=== PATIENT | male | born 1985 | race Caucasian/White ===

== ENCOUNTER 2024-05-10 08:42 | Emergency (ER) | payer MEDICAID ==
[2024-05-10 08:51] VITALS: BP 148/96; O2SAT 100
--- NOTE | 2024-05-10 09:07 | ED Physician Documentation ---
PD HPI LOWER EXT INJURY - Stated complaint Stated Complaint: LT FOOT BIG TOE PX - Chief complaint Chief Complaint: Ext Problem - History obtained from History obtained from: Patient - History of Present Illness PD HPI LOW EXT INJURY LOCATION: Left, Toe Type of injury: No: Fall, Twist Timing - onset: How many days ago (2) Timing - duration: Days (2) Timing - details: Gradual onset, Still present (gradual onset but has gotten extremely painful to touch, bend, walk today.) Worsened by: Moving, Palpating Associated symptoms: Swelling (mild). No: Weakness, Numbness, Discolored Similar symptoms before: Has not had sx before Review of Systems Constitutional: denies: Fever, Chills Skin: denies: Rash, Lesions Neurologic: denies: Focal weakness, Numbness PD PAST MEDICAL HISTORY - Past Medical History Past Medical History: Yes Musculoskeletal: Chronic back pain - Past Surgical History Past Surgical History: Yes Ortho: Other - Present Medications Home Medications: Ambulatory Orders Medication Instructions Recorded Confirmed HYDROcod/ACETAM 5/325 [Clarence 5/325] 1 ea PO Q6H PRN #18 tablet 05/10/24 dexAMETHasone [Decadron] 4 mg PO DAILY #5 tablet 05/10/24 - Allergies Allergies/Adverse Reactions: Allergies Allergy/AdvReac Type Severity Reaction Status Date / Time No Known Drug Allergies Allergy Verified 05/10/24 08:50 - Social History Does the pt smoke?: Yes Smoking Status: Current every day smoker Does the pt drink ETOH?: No Does the pt have substance abuse?: No Substance Use and Type: Marijuana - Immunizations Immunizations are current?: Yes - POLST Patient has POLST: No PD ED PE NORMAL - Vitals Vital signs reviewed: Yes - General General: Alert and oriented X 3, Well developed/nourished, Other (appears in pain due to great toe. ) - Extremities Extremities: Other (left great toe with marked tenderness at dorsal and medial MT head. No skin sores. Some redness minimal. Some mild skin breakdown between toes but no signs of infection. Ankle not tender. ) - Neuro Neuro: No motor deficit, No sensory deficit Results - Vitals Vitals: Oxygen O2 Source Room air - Rads (name of study) toe xray Relevant Findings:: Prelim report reviewed, EMP independent interpretation of test (no bony lesions) PD Medical Decision Making - ED course Complexity details: reviewed results, considered differential (the degree of pain to touch and movement would be consistent with gout. No effusion to be able to tap for disagnostic. Does not appear infected. No bony lesions. Okay to treat as inflammatory: tendonitis or gout. ), d/w patient Departure - Departure Disposition: 01 Home, Self Care Clinical Impression: Pain of left great toe Condition: Stable Record reviewed to determine appropriate education?: Yes Instructions: ED Arthritis Gout Prescriptions: dexAMETHasone [Decadron] 4 mg PO DAILY #5 tablet HYDROcod/ACETAM 5/325 [Clarence 5/325] 1 ea PO Q6H PRN #18 tablet PRN Reason: Pain Comments: Your your x-ray is normal. No signs of bony abnormality. Clinically this sounds most likely gout given the intensity of the pain and tenderness. It could be just tendinitis or some inflammation of the joint space. Common treatment for both would be anti-inflammatories and pain medicine with less activity until improved. The gout would actually be more likely to get better sooner but both of them would be several days to week perhaps. Continue with some ibuprofen 600 to 800 mg 3 times daily with food. Add Tylenol every 4-6 hours if needed for pain. I would also add in dexamethasone steroid anti-inflammatory which would be helpful for both. Also hydrocodone/acetaminophen for pain medicine if needed for worse pain such as you are having. Firm soled shoe and activity as tolerated. I would anticipate improvement over the next few days and resolved by 3 to 5 days most likely. Follow-up if not improving significantly in that timeframe. I sent a prescription to [facility] pharmacy. If this is a "worn off" episode of gout related to some irritation or minor injury then it would likely be infrequent or may not happen again. If he were to develop a pattern of episodes frequently meaning every few weeks or months then there is preventive medicine that can be used to help with gout. Otherwise just see if you get any further episodes down the line. I am prescribing a short course of narcotic pain medication for you. These are potentially dangerous and addictive medications that should be used carefully. These medications may constipate you. Take an [id number] stool softener such as docusate twice daily with plenty of water while taking these medications. If you go 24 hours without a bowel movement, take cuqi-ixd-[id number] MiraLAX, per package instructions. Do not drink or drive while taking these medications. If you received narcotic or sedating medications while in the emergency department do not drive for 24 hours. Store this medication in a safe, secure place and out of reach of children. It is a violation of federal law to give or sell this medication to another person or to use in a manner other than prescribed. The ED will not refill narcotic prescriptions, including prescriptions lost or stolen. You can dispose of unwanted medications at the [facility]'s office or at several pharmacies such as [facility]. Forms: PCP List Discharge Date/Time: 05/10/24 10:08
[2024-05-10] MEDS: dexAMETHasone 4 MG TABLET PO STA (09:34)
[2024-05-10] MEDS: COLCHICINE 0.6 MG TABLET PO STA (09:34)
[2024-05-10] MEDS: ACETAMINOPHEN 500 MG TABLET PO STA (09:34)
--- NOTE | 2024-05-10 10:03 | XRAY Report ---
PROCEDURE: Toe(s) 2+V LT INDICATIONS: great toe pain TECHNIQUE: 3 views of the left first toe(s) acquired. COMPARISON: None. FINDINGS: Bones: No acute fractures or dislocations. Accessory ossicle versus chronic fifth metatarsal base fr acture. No suspicious bony lesions. Soft tissues: No suspicious soft tissue densities. IMPRESSION: No acute bony abnormality. Reviewed by: Luz Maria Skinner MD, PhD on 05/10/2024 10:02 AM PDT Approved by: Luz Maria Skinner MD, PhD on 05/10/2024 10:02 AM PDT Station ID: [id number]
== END 2024-05-10 10:08 | disposition home or self-care (01) ==
LOC: ED 08:42
DX: M79.675 Pain in left toe(s) (principal); M79.89 Other specified soft tissue disorders; F17.200 Nicotine dependence, unspecified, uncomplicated
CPT/HCPCS: 73660; 99283; 99284; A9270; J8540

== ENCOUNTER 2024-07-18 17:38 | Emergency (ER) | payer MEDICAID ==
[2024-07-18 18:00] VITALS: BP 133/84; O2SAT 99
[2024-07-18] MEDS: PROPARACAINE 0.5% OPHTH DROPS 15 ML EACHEYE STA (18:06)
--- NOTE | 2024-07-18 18:21 | ED Physician Documentation ---
History of Present Illness - Stated complaint Stated Complaint: SOMETHING IN R EYE - Chief complaint Chief Complaint: Heent - History obtained from History obtained from: Patient - History of Present Illness Timing: Prior to arrival - Additonal information Additional information: Patient is a 38-year-old male presenting to the emergency department with right eye pain after he was seen in his car and brushed his hair off and accidentally felt some wood debris that he was cutting earlier today falling to his right eye. He notes he washed it multiple times but feels there is still something in his right eye. He notes he does not wear glasses or contacts at baseline. Unsure of his last tetanus shot. He denies any worsening vision changes but notes severe pain with looking at lights or trying to open his eye. He notes mild lacrimation to his right eye. PD PAST MEDICAL HISTORY - Past Medical History Past Medical History: Yes Cardiovascular: None Respiratory: None Neuro: None Endocrine/Autoimmune: None GI: None : None HEENT: None Psych: None Musculoskeletal: Chronic back pain Derm: None - Past Surgical History Past Surgical History: Yes Ortho: Other - Present Medications Home Medications: Ambulatory Orders Medication Instructions Recorded Confirmed Erythromycin Base [Erythromycin 1 appful OP 5XD 7 Days #1 gm 07/18/24 Ophthalmic Ointment] - Allergies Allergies/Adverse Reactions: Allergies Allergy/AdvReac Type Severity Reaction Status Date / Time No Known Drug Allergies Allergy Verified 07/18/24 17:43 - Social History Does the pt smoke?: Yes Smoking Status: Current every day smoker Does the pt drink ETOH?: Yes Does the pt have substance abuse?: Yes Substance Use and Type: Marijuana - Immunizations Immunizations are current?: Yes - POLST Patient has POLST: No PD ED PE NORMAL - Vitals Vital signs reviewed: Yes - General General: Alert and oriented X 3 - HEENT HEENT: Atraumatic, PERRL, EOMI, Other (Periorbital swelling lacrimation noted on examination. Fluorescein stain here in emergency department shows no foreign bodies there is a corneal abrasion appreciated at 12 o'clock position. Eversion of upper and lower eyelid shows no signs of foreign bodies. ) - Neck Neck: Supple, no meningeal sign - Cardiac Cardiac: RRR, No murmur, No gallop, No rub - Respiratory Respiratory: No respiratory distress, Clear bilaterally - Neuro Neuro: Alert and oriented X 3 Results - Vitals Vitals: Vital Signs - 24 hr 07/18/24 17:43 Temperature 36.7 C Heart Rate 98 Respiratory 16 Rate Blood Pressure 133/84 H O2 Saturation 99 Oxygen O2 Source Room air PD Medical Decision Making - ED course Complexity details: re-evaluated patient ED course: Patient is a 38-year-old male presenting to the emergency department with right eye pain after accidentally brushing woodchips into his eye from running his hands through his hair and after he was cutting wood earlier today. He notes he took his safety goggles off shortly prior to this and since then continues to have right eye pain. He feels as though something is in his right eye. He notes lacrimation difficulty looking at light since injury. He denies any vision changes does not wear glasses or contacts. Vital stable on arrival. Physical exam shows pupils equal round reactive to light. Mild conjunctival erythema to right eye. With mild lacrimation.. Periorbital swelling lacrimation noted on examination. Fluorescein stain here in emergency department shows no foreign bodies there is a corneal abrasion appreciated at 12 o'clock position. Eversion of upper and lower eyelid shows no signs of foreign bodies. Patient feels significantly better after proparacaine. Visual acuity in triage shows no acute findings. Patient updated on tetanus here in emergency department. Will discharge patient with erythromycin ointment for right-sided corneal abrasion. Instructed patient to follow-up with his PCP in outpatient setting. 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 He was instructed to return with any vision changes worsening eye pain persistent feelings of foreign bodies swelling around his eye vision changes or any other new or worsening symptoms. Departure - Departure Disposition: 01 Home, Self Care Clinical Impression: Injury of conjunctiva and corneal abrasion of right eye w/o FB Condition: Good Comments: You were seen here in the emergency department for your right eye pain. Your workup here shows a corneal abrasion to your right eye in the 12 o'clock position. I did not see any foreign bodies. Your tetanus shot was updated here in the emergency department. You should apply erythromycin ointment 4 times a day as prescribed above. Ensure no swelling around the eye no vision changes no worsening eye pain. Return with any of the symptoms. Follow-up with your manager mortgage in the outpatient setting.
[2024-07-18] MEDS: TETANUS/DIPHTHERIA/PERTUSSIS 0.5 ML SYRINGE IM ONE (18:33)
== END 2024-07-18 18:42 | disposition home or self-care (01) ==
LOC: ED 17:38
DX: S05.01XA Injury of conjunctiva and corneal abrasion without foreign body, right eye, initial encounter (principal); W44.F9XA Other object of natural or organic material, entering into or through a natural orifice, initial encounter; Y93.89 Activity, other specified; Y92.810 Car as the place of occurrence of the external cause; F17.200 Nicotine dependence, unspecified, uncomplicated
CPT/HCPCS: 90471; 90715; 99283; 99284; J3490